=== PATIENT | male | born 1935 | race Caucasian/White ===

== ENCOUNTER → 2023-05-14 09:55 | Outpatient (CLI) | payer MEDICARE, OTHER, SELFPAY ==
[2023-05-14 10:53] LABS: BUN Creatinine Ratio 27.2 (6-22); Blood Urea Nitrogen 25 mg/dL (9-20); Calcium 9.6 mg/dL (8.4-10.2); Carbon Dioxide 24 mmol/L (22-32); Chloride 102 mmol/L (98-107); Estimated Glomerular Filt Rate > 60 mL/min (>60); Glucose 110 mg/dL (80-110); HEMOLYSIS < 15 (0-50); Potassium 4.9 mmol/L (3.4-5.1); Sodium 136 mmol/L (137-145)
== END ==
PROVIDERS: PCP Family Medicine; Referring Provider Internal Medicine Cardiovascular Disease; Visit Provider Internal Medicine Cardiovascular Disease
DX: I48.91 Unspecified atrial fibrillation (principal); I50.23 Acute on chronic systolic (congestive) heart failure; I48.19 Other persistent atrial fibrillation
CPT/HCPCS: 36415; 80048; 81241

== ENCOUNTER 2024-02-03 16:25 | Emergency (ER) | payer MEDICARE, OTHER, SELFPAY ==
[2024-02-03] VITALS (7 sets, daily range): BP systolic 141–168; BP diastolic 68–84; PULSE 76–82; RESP 14–16; TEMP 36.3–36.6; O2SAT 95–98; BMI 24.1
--- NOTE | 2024-02-03 18:50 | PC.NURSE ---
Pt denies pain and CMS intact distally to right hand. 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 He states was told there may be a clot in the pseudoaneurysm. States he would not be here except for being called by provider and told to go to the ER.
--- NOTE | 2024-02-03 18:56 | ED_ITS ---
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 They used wrist access. Noted that the access site was ?bulging? after the procedure had an ultrasound that was done on January 30 in [place]. Received a phone call today and was told that he had a pseudo aneurysm with partial thrombosis and was told to come to the closest emergency department. Patient is currently anticoagulated on apixaban. Related Data Home Medications Medication Instructions Recorded Confirmed apixaban 5 mg tablet 5 mg PO BID 02/03/24 02/03/24 empagliflozin 10 mg tablet 10 mg PO DAILY 02/03/24 02/03/24 (Jardiance) finasteride 5 mg tablet 5 mg PO DAILY 02/03/24 02/03/24 fluticasone propionate 250 1 inh inhalation BID 02/03/24 02/03/24 mcg/actuation blister powder for inhalation losartan 25 mg tablet 25 mg PO DAILY 02/03/24 02/03/24 metoprolol succinate 25 mg capsule 25 mg PO BID 02/03/24 02/03/24 sprinkle, ext. release 24 hr rosuvastatin 40 mg tablet 40 mg PO QPM 02/03/24 02/03/24 tamsulosin 0.4 mg capsule 0.4 mg PO DAILY 02/03/24 02/03/24 Allergies Allergy/AdvReac Type Severity Reaction Status Date / Time No Known Drug Allergies Allergy Verified 02/03/24 16:38 Patient History Medical History Hyperlipidemia Hypertension Diabetes Homograft cardiac valve stenosis Coronary artery disease Social History Smoking Status: Never smoker Smoking Status: Never smoker alcohol intake frequency: a few times a week Substance Use Type: does not use Exam Initial Vital Signs Initial Vital Signs: Vital Signs Temperature 98 F 02/03/24 16:34 Pulse Rate 76 02/03/24 16:34 Respiratory Rate 16 02/03/24 16:34 Blood Pressure 141/68 H 02/03/24 16:34 Pulse Oximetry 95 02/03/24 16:34 Oxygen Delivery Method Room Air 02/03/24 16:34 General: Alert appropriate in no acute distress Respiratory: Able to speak in full sentences, no obvious respiratory distress Skin: No obvious rashes, warm and dry Extremity: Approximately 1 cm pseudoaneurysm radial artery good pulse. Kush test is appropriate and there is a good ulnar pulse palpable in the right extremity. No vascular compromise to the hand or fingers. Neurologic: Grossly intact no obvious asymmetries or abnormalities Psych: appropriate insight and affect, cooperative Course Vital Signs Vital signs: Vital Signs - 8 hr 02/03/24 16:34 Temperature 98 F Pulse Rate 76 Respiratory Rate 16 Blood Pressure 141/68 H Pulse Oximetry 95 Oxygen Delivery Method Room Air MDM - Extremity (Nontraumatic) MDM Narrative Medical decision making narrative: 88-year-old gentleman who underwent heart catheterization of the [facility] on November 04. On approximately November 28 he noted a slight bulging in the right wrist. On January 30 he had an ultrasound and on JanuaryFebruary 02 they got a phone call from the radiologist who told him he had a pseudoaneurysm with partial clot and needed to emergently go to the emergency department. Patient is completely asymptomatic, he is anticoagulated he has cardiology follow up. Brief discussion with Dr. Manjarrez, Cardiology partner with Dr. Marques the patient's local [facility] tier, agreed with home discharge and outpatient follow up. Reviewed signs and symptoms of acute vascular compromise, questions are answered he is safe for discharge Discharge Plan Departure Patient Disposition: Home Clinical Impression: Radial artery aneurysm, right Activity Restrictions/Additional Instructions: Thank you for coming in today as directed I am sorry for the confusion in the instructions The fact that you have this pseudoaneurysm in the right wrist that has been there since at least November 28, you are anticoagulated, you have good blood flow through your ulnar artery and and not having any problems with vasculature to your hand means that this is not an emergency and there is nothing that we need to do immediately. When you go to Dr. Marques's office tomorrow for your scheduled echocardiogram, please ask the nurses to get a message to him regarding this pseudoaneurysm. On an outpatient basis you will likely need referral to a vascular surgeon for outpatient repair of this right radial artery aneurysm In the meantime, please continue to take your apixaban. If you are having pain cramping or blood flow issues to the right hand that is an emergency and you do need to return immediately. Prescriptions: No Action tamsulosin 0.4 mg capsule 0.4 mg PO DAILY losartan 25 mg Tablet 25 mg PO DAILY fluticasone propionate [Flovent Diskus] 250 mcg/actuation Blister With Device 1 inh INHALATION BID finasteride 5 mg tablet 5 mg PO DAILY rosuvastatin 40 mg tablet 40 mg PO QPM apixaban 5 mg Tablet 5 mg PO BID Jardiance 10 mg Tablet 10 mg PO DAILY metoprolol succinate 25 mg Capsule,Sprinkle,Er 24hr 25 mg PO BID Referrals: Juan M Espitia MD [Primary Care Provider] - Stand Alone Forms: Patient Portal/API
== END 2024-02-03 19:37 | disposition home or self-care (01) ==
PROVIDERS: Emergency Provider Emergency Medicine; PCP Family Medicine
DX: I72.1 Aneurysm of artery of upper extremity (principal)
CPT/HCPCS: 99281; 99282